=== PATIENT | female | born 1980 | race Caucasian/White ===

== ENCOUNTER 2017-08-07 19:19 | Emergency (ER) | payer OTHER ==
[~2017-08-07] VITALS: Ht 172.7 cm; Wt 104.6 kg
[~2017-08-07 19:19] MED LIST: MOTRIN600 MG/TAB PO; NAPROSYN500 MG OR; PRENATAL OR; TEGRETOL200 MG OR; TYLENOL325 M1 RE; ULTRAM50 MG OR
[2017-08-07 20:18] LABS: HEMATOCRIT 42.2 % (37.0-47.0); HEMOGLOBIN 13.2 g/dl (12.0-16.0); IMMATURE GRANULOCYTES 0.3 % (0.0-1.0); MEAN CELL VOLUME 85.3 fL CALC (80.0-100.0); MEAN CORPUSCULAR HGB 26.7 pG CALC (26.0-32.0); MEAN CORPUSCULAR HGB CONC 31.3 g/L CALC (32.0-36.0); NEUT# 7.8 thou/uL (2.00-7.15); RED BLOOD COUNT 4.95 mill/uL (4.20-5.60); RED CELL DISTRI WIDTH 14.3 % (11.5-15.5)
[2017-08-07 20:20] LABS: URINE BILIRUBIN - DIPSTICK NEGATIVE (NEGATIVE); URINE BLOOD DIPSTICK NEGATIVE (NEGATIVE); URINE COLOR YELLOW; URINE GLUCOSE - DIPSTICK NEGATIVE (NEGATIVE); URINE KETONE NEGATIVE (NEGATIVE); URINE LEUK ESTERASE NEGATIVE (NEGATIVE); URINE NITRITE - DIPSTICK NEGATIVE (Negative); URINE PH 5.5 (4.5-8.0); URINE PROTEIN - DIPSTICK NEGATIVE (NEG-TRACE); URINE SPECIFIC GRAVITY >=1.030; URINE UROBILINOGEN - DIPSTICK 0.2 E.U./dL (0.2)
[2017-08-07 20:27] LABS: URINE CLARITY CLEAR
[2017-08-07 20:51] LABS: ALBUMIN 4.4 g/dL (3.2-5.0); ALKALINE PHOSPHATASE 56 u/l (38-126); AMYLASE 41 u/l (30-110); ANION GAP 18 (6-22 (CALC)); BILIRUBIN, TOTAL 0.4 mg/dL (0.0-1.4); BUN 11 mg/dL (7-17); BUN/CREATININE RATIO 12 (12-20 (CALC)); CALCIUM 10.2 mg/dL (8.4-10.2); CARBON DIOXIDE 25 mmol/l (22-30); CHLORIDE 105 mmol/l (95-108); CREATININE 0.9 mg/dL (0.5-1.0); GFR > 60 ML/MIN (>=60 (CALC)); GFR FOR AFR.AMER. > 60 ML/MIN (>=60 (CALC)); GLUCOSE 105 mg/dL (65-105); LIPASE 110 u/l (23-300); POTASSIUM 4.3 mmol/l (3.5-5.1); SGOT/AST 25 u/l (14-36); SGPT/ALT 46 u/l (9-52); SODIUM 144 mmol/l (137-146); TOTAL PROTEIN 7.2 g/dL (6.3-8.2)
[2017-08-07 22:52] VITALS: BP 118/70
== END 2017-08-07 22:40 | disposition home or self-care (01) | DRG 392 ==
LOC: ED 19:19
PROVIDERS: Emergency Medicine
DX: R10.32 Left lower quadrant pain (principal)

== ENCOUNTER 2018-06-08 04:11 | Emergency (ER) | payer OTHER ==
[~2018-06-08] VITALS: Ht 167.6 cm; Wt 106.3 kg
[2018-06-08] MEDS ORDERED: PROGESTERONE200 MG PO (04:20)
[2018-06-08] MEDS ORDERED: MACROBID100 MG PO (04:21)
[2018-06-08] MEDS ORDERED: DICLEGIS1 TAB PO (04:21)
[2018-06-08 05:58] LABS: HEMATOCRIT 40.4 % (37.0-47.0); HEMOGLOBIN 13.1 g/dl (12.0-16.0); IMMATURE GRANULOCYTES 0.4 % (0.0-5.0); MEAN CELL VOLUME 85.6 fL CALC (80.0-100.0); MEAN CORPUSCULAR HGB 27.8 pG CALC (26.0-32.0); MEAN CORPUSCULAR HGB CONC 32.4 g/L CALC (32.0-36.0); NEUT# 7.88 thou/uL (2.00-7.15); RED BLOOD COUNT 4.72 mill/uL (4.20-5.60); RED CELL DISTRI WIDTH 14.2 % (11.5-15.5)
[2018-06-08 06:20] LABS: ALBUMIN 4.2 g/dL (3.2-5.0); ALKALINE PHOSPHATASE 53 u/l (38-126); ANION GAP 16 (6-22 (CALC)); BILIRUBIN, TOTAL 0.5 mg/dL (0.0-1.4); BUN 11 mg/dL (7-17); BUN/CREATININE RATIO 13 (12-20 (CALC)); CARBON DIOXIDE 24 mmol/l (22-30); CHLORIDE 105 mmol/l (95-108); CREATININE 0.9 mg/dL (0.5-1.0); GFR > 60 ML/MIN (>=60 (CALC)); GFR FOR AFR.AMER. > 60 ML/MIN (>=60 (CALC)); POTASSIUM 4.1 mmol/l (3.5-5.1); SGOT/AST 19 u/l (14-36); SGPT/ALT 24 u/l (9-52); SODIUM 140 mmol/l (137-146); TOTAL PROTEIN 6.8 g/dL (6.3-8.2)
[2018-06-08 06:36] LABS: BETA-HCG, QUANT(RESULT NUMBER) 4952 mIU/mL
[2018-06-08 10:15] VITALS: BP 120/68
== END 2018-06-08 10:21 | disposition home or self-care (01) ==
LOC: ED 04:11
PROVIDERS: Emergency Medicine
DX: O46.90 Antepartum hemorrhage, unspecified, unspecified trimester (principal); O99.350 Diseases of the nervous system complicating pregnancy, unspecified trimester; G40.909 Epilepsy, unspecified, not intractable, without status epilepticus; Z3A.00 Weeks of gestation of pregnancy not specified
CPT/HCPCS: J2788

== ENCOUNTER 2019-08-09 00:50 | Emergency (ER) | payer SELFPAY ==
[~2019-08-09] VITALS: Ht 167.6 cm; Wt 103.8 kg
[~2019-08-09 00:50] MED LIST changes: +DICLEGIS1 TAB PO; +MACROBID100 MG PO; +PROGESTERONE200 MG PO
[2019-08-09 02:15] LABS: HEMATOCRIT 46.2 % (37.0-47.0); HEMOGLOBIN 14.5 g/dl (12.0-16.0); IMMATURE GRANULOCYTES 0.3 % (0.0-5.0); MEAN CELL VOLUME 85.2 fL CALC (80.0-100.0); MEAN CORPUSCULAR HGB 26.8 pG CALC (26.0-32.0); MEAN CORPUSCULAR HGB CONC 31.4 g/L CALC (32.0-36.0); NEUT# 6.24 thou/uL (2.00-7.15); RED BLOOD COUNT 5.42 mill/uL (4.20-5.60); RED CELL DISTRI WIDTH 13.9 % (11.5-15.5)
--- NOTE | 2019-08-09 02:35 | NUR ---
BREATHING TREATMENT GIVEN BACK TO BACK. BREATHING TECH. FOR GOOD DEPOSITION TO THE LUNGS.
[2019-08-09] MEDS ORDERED: VENTOLIN HFA IN (03:25)
[2019-08-09] MEDS ORDERED: CLARITHROMYC500 MG PO (03:25)
[2019-08-09] MEDS ORDERED: PREDNISONE50 MG PO (03:25)
[2019-08-09 03:39] VITALS: BP 127/52
== END 2019-08-09 03:39 | disposition home or self-care (01) | DRG 195 ==
LOC: ED 00:50
PROVIDERS: Family Medicine
DX: J18.9 Pneumonia, unspecified organism (principal); J98.01 Acute bronchospasm

== ENCOUNTER 2021-12-30 20:49 | Emergency (ER) | payer SELFPAY ==
[~2021-12-30] VITALS: Ht 172.7 cm; Wt 97.0 kg
[~2021-12-30 20:49] MED LIST changes: +CLARITHROMYC500 MG PO; +PREDNISONE50 MG PO; +VENTOLIN HFA IN
[2021-12-30 21:05] VITALS: BP 120/76
[2021-12-30 21:35] LABS: IMMATURE GRANULOCYTES 0.1 % (0.0-5.0); MEAN CORPUSCULAR HGB 27.6 pG CALC (26.0-32.0); MEAN CORPUSCULAR HGB CONC 31.7 g/dL CAL (32.0-36.0); NEUT# 10.46 thou/uL (2.00-7.15); RED BLOOD COUNT 4.71 mill/uL (4.20-5.60); RED CELL DISTRI WIDTH 14.3 % (11.5-15.5)
[2021-12-30 21:48] LABS: ALBUMIN 4.6 g/dL (3.2-5.0); ALKALINE PHOSPHATASE 59 u/l (38-126); AMYLASE 55 u/l (30-110); ANION GAP 14 (6-22 (CALC)); BILIRUBIN, TOTAL 0.7 mg/dL (0.0-1.4); BUN 9 mg/dL (7-17); BUN/CREATININE RATIO 10 (12-20 (CALC)); CARBON DIOXIDE 26 mmol/l (22-30); CHLORIDE 104 mmol/l (95-108); CREATININE 0.9 mg/dL (0.5-1.0); GFR > 60 ML/MIN (>=60 (CALC)); GFR FOR AFR.AMER. > 60 ML/MIN (>=60 (CALC)); LIPASE 48 u/l (23-300); POTASSIUM 3.7 mmol/l (3.5-5.1); SGOT/AST 24 u/l (14-36); SODIUM 140 mmol/l (137-146)
[2021-12-30 22:18] LABS: TSH, 3RD GENERATION 3.59 uIU/mL (0.47 - 4.68)
[2021-12-30] MEDS ORDERED: KEFLEX500 MG PO (22:47)
[2021-12-30] MEDS ORDERED: CARAFATE1 GM PO (22:47)
[2021-12-30 22:53] VITALS: BP 120/76
== END 2021-12-30 23:04 | disposition home or self-care (01) | DRG 313 ==
LOC: ED 20:49
DX: R07.89 Other chest pain (principal); S27.818A Other injury of esophagus (thoracic part), initial encounter; F17.200 Nicotine dependence, unspecified, uncomplicated; G40.409 Other generalized epilepsy and epileptic syndromes, not intractable, without status epilepticus; X58.XXXA Exposure to other specified factors, initial encounter; Z20.822 Contact with and (suspected) exposure to COVID-19
CPT/HCPCS: Q9967